=== PATIENT | female | born 1960 | race Caucasian/White ===

== ENCOUNTER 2016-06-20 23:42 | Emergency (ER) | payer MEDICAID ==
--- NOTE | 2016-06-21 01:34 | ER Document Report ---
ED Fever - General Chief Complaint: Fever Stated Complaint: FEVER Time seen by provider: 01:34 Mode of Arrival: Ambulatory Information source: Patient TRAVEL OUTSIDE OF THE [place] IN LAST 30 DAYS: No - HPI Patient complains to provider of: fever Onset: Other - 5 days ago Onset/Duration: Waxing and waning Quality of pain: No pain Associated symptoms: Headache Similar symptoms previously: Yes Recently seen / treated by doctor: Yes Notes: Patient is a 55 year old female with a history of cirrhosis of the liver and liver cancer who presents to the emergency room for complaints of a fever this been going on for the past few days, she reports a headache and symptoms consistent with thrush in her mouth, she states she had a fever on or Sunday of last week, Sunday and Sunday were okay but today she developed one again, she reports a mild headache, no abdominal pain, no nausea, vomiting or diarrhea, no dysuria or hematuria, she has a nonproductive cough as well, no sick contacts - Related Data Allergies/Adverse Reactions: Coconut * [Coconut] Allergy (Mild, Verified 09/06/15 15:47) morphine Allergy (Verified 03/15/16 12:32) Penicillins Allergy (Verified 09/06/15 15:47) enoxaparin [From Lovenox] Adverse Reaction (Verified 03/15/16 23:02) heparin Adverse Reaction (Verified 03/15/16 23:02) Past Medical History - General Information source: Patient - Social History Smoking Status: Unknown if Ever Smoked Family History: DM, Hyperlipidemia, Hypertension Patient has suicidal ideation: No Patient has homicidal ideation: No - Past Medical History Cardiac Medical History: Reports: Hx Congestive Heart Failure, Hx Coronary Artery Disease, Hx DVT - x 3 to RLE in past, Hx Heart Attack, Hx Hypercholesterolemia, Hx Hypertension Pulmonary Medical History: Reports: Hx Asthma, Hx COPD, Hx Pneumonia Denies: Hx Bronchitis, Hx Tuberculosis Neurological Medical History: Reports: Hx Seizures - pseudo. Denies: Hx Cerebrovascular Accident Endocrine Medical History: Reports: Hx Diabetes Mellitus Type 2 Renal/ Medical History: Denies: Hx Peritoneal Dialysis GI Medical History: Reports: Hx Cirrhosis, Hx Hepatitis - HEP C Musculoskeltal Medical History: Reports Hx Arthritis Skin Medical History: Reports Hx Cellulitis Psychiatric Medical History: Reports: Hx Anxiety, Hx Depression Infectious Medical History: Reports: Hx Hepatitis - HEP C. Denies: Hx MRSA Past Surgical History: Reports: Hx Cardiac Catheterization - angioplasty, Hx Coronary Artery Bypass Graft, Hx Orthopedic Surgery - R finger surgery x5, foot surgery, Hx Tonsillectomy, Hx Tubal Ligation. Denies: Hx Pacemaker - Immunizations Immunizations up to date: Yes Hx Diphtheria, Pertussis, Tetanus Vaccination: Yes Hx Pneumococcal Vaccination: 02/11/14 Review of Systems - Review of Systems Constitutional: Fever EENT: No symptoms reported Cardiovascular: No symptoms reported Respiratory: Cough Gastrointestinal: No symptoms reported Genitourinary: No symptoms reported Female Genitourinary: No symptoms reported Musculoskeletal: No symptoms reported Skin: No symptoms reported Hematologic/Lymphatic: No symptoms reported Neurological/Psychological: Headaches -: Yes All other systems reviewed and negative Physical Exam - Vital signs Vitals: Temp Resp BP 101.1 F H 20 134/71 H 06/21/16 00:01 06/21/16 00:01 06/21/16 00:01 Interpretation: Normal - General General appearance: Appears well, Alert - HEENT Head: Normocephalic, Atraumatic Eyes: Normal Conjunctiva: Icteric Extraocular movements intact: Yes Eyelashes: Normal Pupils: PERRL Ears: Normal External canal: Normal Tympanic membrane: Normal Sinus: Normal Nasal: Normal Mouth/Lips: Other - Patient has mild periodontal erythema and irritation with white plaques Mucous membranes: Normal Pharynx: Normal Neck: Normal - Respiratory Respiratory status: No respiratory distress Chest status: Nontender Breath sounds: Normal Chest palpation: Normal - Cardiovascular Rhythm: Regular Heart sounds: Normal auscultation Murmur: No - Abdominal Inspection: Normal Distension: Distended, Fluid wave Bowel sounds: Normal Tenderness: Nontender Organomegaly: No organomegaly - Back Back: Normal, Nontender - Extremities General upper extremity: Normal inspection, Nontender, Normal color, Normal ROM , Normal temperature General lower extremity: Normal inspection, Nontender, Normal color, Normal ROM , Normal temperature, Normal weight bearing. No: Gregory's sign - Neurological Neuro grossly intact: Yes Cognition: Normal Orientation: AAOx4 Anupama Coma Scale Eye Opening: Spontaneous [place] Coma Scale Verbal: Oriented [place] Coma Scale Motor: Obeys Commands [place] Coma Scale Total: 15 Speech: Normal Motor strength normal: LUE, RUE, LLE, RLE Sensory: Normal - Psychological Associated symptoms: Normal affect, Normal mood - Skin Skin Temperature: Warm Skin Moisture: Dry Skin Color: Jaundiced Course - Re-evaluation Re-evalutation: 06/21/16 03:22 Lab results were shared with patient at bedside and she was provided with a copy for follow-up, there is no leukocytosis, vital signs are stable, no signs of any infection on physical exam, abdomen is soft and nontender with ascites, influenza is negative, patient was provided with Magic mouthwash and advised to follow-up with her primary care provider and sign erector and repairer within the next 2-3 days or return if symptoms worsen, patient acknowledges understanding and agreement with this plan 06/21/16 06:39 Patient is noted to have thrombocytopenia consistent with previous white counts , she has no signs of bleeding - Vital Signs Vital signs: Temp Pulse Resp BP Pulse Ox 98.5 F 78 16 119/66 97 06/21/16 03:58 06/21/16 03:58 06/21/16 03:58 06/21/16 03:58 06/21/16 03:58 - Laboratory Result Diagrams: 06/21/16 01:56 06/21/16 01:56 Laboratory results interpreted by me: 06/21/16 06/21/16 06/21/16 01:56 01:56 02:15 RBC 3.58 L Hgb 11.7 L Hct 34.2 L RDW 18.1 H Plt Count 17 L* Sodium 134.7 L Calcium 7.8 L Total Bilirubin 7.1 H AST 49 H Alkaline Phosphatase 213 H Total Protein 6.0 L Albumin 2.6 L Urine Blood LARGE H Discharge - Discharge Clinical Impression: Viral illness, Thrombocytopenia Fever Qualifiers: Fever type: unspecified Qualified Code(s): R50.9 - Fever, unspecified Condition: Stable Disposition: HOME, SELF-CARE Instructions: Acetaminophen, Fever ([facility]), Viral Syndrome ([facility]) Additional Instructions: Follow up with your primary care provider and your sign erector and repairer in one to 2 days. Return to the emergency room immediately if symptoms worsen or any additional concerns. Prescriptions: Nystatin/Dexameth/Diphen [Magic Mouthwash ([facility] Formula) Susp] 5 ml PO QID #120 ml Referrals: BENEDICTO ODELL MD [Primary Care Provider] - Follow up as needed
[2016-06-21 02:30] LABS: ABSOLUTE BASOPHILS # (AUTO) 0.1 10^3/uL (0.0-0.2); ABSOLUTE EOSINOPHILS # (AUTO) 0.1 10^3/uL (0.0-0.6); ABSOLUTE MONOCYTES (AUTO) 0.6 10^3/uL (0.1-1.4); ABSOLUTE NEUT (AUTO) 3.8 10^3/uL (1.7-8.2); EOSINOPHILS % (AUTO) 2.4 % (0-6); HEMATOCRIT 34.2 % (36.0-47.0); HEMOGLOBIN 11.7 g/dL (12.0-15.5); HGB HCT DIFFERENCE 0.9; LYMPHOCYTES % (AUTO) 17.6 % (13-45); MEAN CORPUSCULAR HEMOGLOBIN 32.7 pg (27.0-33.4); MEAN CORPUSCULAR HGB CONC 34.2 g/dL (32.0-36.0); MEAN CORPUSCULAR VOLUME 96 fl (80-97); MONOCYTES % (AUTO) 10.9 % (3-13); RED BLOOD COUNT 3.58 10^6/uL (3.72-5.28); RED CELL DISTRIBUTION WIDTH 18.1 % (11.5-14.0); SEGMENTED NEUTROPHILS % (AUTO) 68.1 % (42-78); WHITE BLOOD COUNT 5.6 10^3/uL (4.0-10.5)
[2016-06-21 02:36] LABS: ALANINE AMINOTRANSFERASE 39 U/L (9-52); ALBUMIN 2.6 g/dL (3.5-5.0); ALKALINE PHOSPHATASE 213 U/L (38-126); ANION GAP 9 (5-19); ASPARTATE AMINO TRANSFERASE 49 U/L (14-36); BILIRUBIN,DIRECT 0.1 mg/dL (0.0-0.3); BILIRUBIN,TOTAL 7.1 mg/dL (0.2-1.3); BLOOD UREA NITROGEN 8 mg/dL (7-20); CALCIUM 7.8 mg/dL (8.4-10.2); CARBON DIOXIDE 22 mmol/L (22-30); CHLORIDE 104 mmol/L (98-107); CREATININE RESULT 0.54 mg/dL (0.52-1.25); GLUCOSE 87 mg/dL (75-110); POTASSIUM 3.8 mmol/L (3.6-5.0); SODIUM 134.7 mmol/L (137-145)
[2016-06-21 02:56] LABS: APPEARANCE,URINE SLIGHTLY-CLOUDY; BILIRUBIN,URINE NEGATIVE (NEGATIVE); GLUCOSE, URINE NEGATIVE (NEGATIVE); KETONES,URINE NEGATIVE (NEGATIVE); LEUKOCYTE ESTERASE,URINE NEGATIVE (NEGATIVE); NITRITE,URINE NEGATIVE (NEGATIVE); PROTEIN,URINE NEGATIVE (NEGATIVE); URINE SPECIFIC GRAVITY 1.009; UROBILINOGEN,URINE NEGATIVE mg/dL (<2.0)
[2016-06-21] MEDS ORDERED: NYSTATIN/DEXAMETH/DIPHEN SUSP 120 ML PO ONE ×2 (03:31→03:43)
[2016-06-21 03:58] VITALS: BP 119/66
== END 2016-06-21 03:58 | disposition home or self-care (01) ==
LOC: ER 23:42
DX: D69.6 Thrombocytopenia, unspecified (principal); R50.9 Fever, unspecified; B34.9 Viral infection, unspecified; I50.9 Heart failure, unspecified; I11.0 Hypertensive heart disease with heart failure; I25.10 Atherosclerotic heart disease of native coronary artery without angina pectoris; E78.00 Pure hypercholesterolemia, unspecified; E11.9 Type 2 diabetes mellitus without complications; Z86.718 Personal history of other venous thrombosis and embolism; Z86.19 Personal history of other infectious and parasitic diseases; Z88.0 Allergy status to penicillin; Z88.6 Allergy status to analgesic agent; I25.2 Old myocardial infarction; Z95.1 Presence of aortocoronary bypass graft; Z98.51 Tubal ligation status
CPT/HCPCS: 99283; 36415; 87040; 87086; 85025; 80053; 81001; 87804; J3490

== ENCOUNTER 2016-08-04 08:50 | Inpatient (IN) | payer MEDICAID ==
[2016-08-04] MEDS ORDERED: ONDANSETRON HCL INJ/PF 4 MG/2 ML SDV IV ONE ×2 (09:44→09:57)
[2016-08-04] MEDS ORDERED: ONDANSETRON HCL INJ/PF 4 MG/2 ML SDV ONE (09:46)
--- NOTE | 2016-08-04 10:14 | ER Document Report ---
ED GI/ - General Chief Complaint: Abdominal Pain Stated Complaint: SHORTESS OF BREATH Notes: The patient is a 55-year-old female, past medical history hepatocellular carcinoma, ascites, presents requesting her albumin infusion. She has been receiving biweekly albumin infusions at [facility] to help decrease her ascites. She did not feel like going up to her appointment 5 days ago and now she is gaining weight. She has a home hospice nurse and the nurse is trying to set her up with Dr. Laboy, the oncologist in [place]. The meeting is today. Patient also has intermittent abdominal pain, nausea or vomiting while in the emergency room. Patient denies current shortness of breath, fevers, cough, confusion, numbness, tingling, blurry vision or back pain. TRAVEL OUTSIDE OF THE [place] IN LAST 30 DAYS: No - Related Data Allergies/Adverse Reactions: Coconut * [Coconut] Allergy (Mild, Verified 08/04/16 09:20) morphine Allergy (Verified 08/04/16 09:20) Penicillins Allergy (Verified 08/04/16 09:20) enoxaparin [From Lovenox] Adverse Reaction (Verified 08/04/16 09:20) heparin Adverse Reaction (Verified 08/04/16 09:20) Past Medical History - General Information source: Patient, Relative - Social History Smoking Status: Current Every Day Smoker Frequency of alcohol use: None Drug Abuse: None Family History: DM, Hyperlipidemia, Hypertension - Past Medical History Cardiac Medical History: Reports: Hx Congestive Heart Failure, Hx Coronary Artery Disease, Hx DVT - x 3 to RLE in past, Hx Heart Attack, Hx Hypercholesterolemia, Hx Hypertension Pulmonary Medical History: Reports: Hx Asthma, Hx COPD, Hx Pneumonia Denies: Hx Bronchitis, Hx Tuberculosis Neurological Medical History: Reports: Hx Seizures - pseudo. Denies: Hx Cerebrovascular Accident Endocrine Medical History: Reports: Hx Diabetes Mellitus Type 2 Renal/ Medical History: Denies: Hx Peritoneal Dialysis GI Medical History: Reports: Hx Cirrhosis, Hx Hepatitis - HEP C Musculoskeltal Medical History: Reports Hx Arthritis Skin Medical History: Reports Hx Cellulitis Psychiatric Medical History: Reports: Hx Anxiety, Hx Depression Infectious Medical History: Reports: Hx Hepatitis - HEP C. Denies: Hx MRSA Past Surgical History: Reports: Hx Cardiac Catheterization - angioplasty, Hx Coronary Artery Bypass Graft, Hx Orthopedic Surgery - R finger surgery x5, foot surgery, Hx Tonsillectomy, Hx Tubal Ligation. Denies: Hx Pacemaker - Immunizations Immunizations up to date: Yes Hx Diphtheria, Pertussis, Tetanus Vaccination: Yes Hx Pneumococcal Vaccination: 02/11/14 Review of Systems - Review of Systems Notes: REVIEW OF SYSTEMS: CONSTITUTIONAL: +weight gain, -fevers, -chills EENT: -eye pain, -difficulty swallowing, -nasal congestion CARDIOVASCULAR:-chest pain, -syncope. RESPIRATORY: -cough, -SOB GASTROINTESTINAL: +abdominal distention, +abdominal pain, +nausea, +vomiting, - diarrhea GENITOURINARY: -dysuria, -hematuria MUSCULOSKELETAL: -back pain, -neck pain SKIN: -rash or skin lesions. HEMATOLOGIC: -easy bruising or bleeding. LYMPHATIC: -swollen, enlarged glands. NEUROLOGICAL: +confusion, -headache PSYCHIATRIC: -anxiety, -depression. ALL OTHER SYSTEMS REVIEWED AND NEGATIVE. Physical Exam - Vital signs Vitals: Temp Pulse Resp BP Pulse Ox 98.3 F 83 20 177/91 H 95 08/04/16 09:13 08/04/16 09:13 08/04/16 09:13 08/04/16 09:13 08/04/16 09:13 - Notes Notes: PHYSICAL EXAMINATION: GENERAL: In no acute distress. HEAD: Atraumatic, normocephalic. EYES: Pupils equal round and reactive to light, extraocular movements intact, sclera icteric, conjunctiva are normal. ENT: nares patent, oropharynx clear without exudates. Moist mucous membranes. NECK: Normal range of motion, supple without lymphadenopathy LUNGS: Breath sounds clear to auscultation bilaterally and equal. No wheezes rales or rhonchi. HEART: Regular rate and rhythm without murmurs ABDOMEN: Ascites, mild diffuse tenderness, decreased bowel sounds. No masses appreciated. EXTREMITIES: Normal range of motion, 2+ are full edema and chronic venous stasis changes. No cyanosis. NEUROLOGICAL: Cranial nerves grossly intact. Normal speech, normal gait. Normal sensory, motor, and reflex exams. PSYCH: Normal mood, normal affect. SKIN: Jaundiced. Course - Re-evaluation Re-evalutation: Patient with nausea, vomiting and increased abdominal swelling. This may be from her increased ascites, but she is very tender. No fevers to suggest SBP. CT abdomen and pelvis shows small bowel obstruction and ascites. Patient also has elevated ammonia and hyperkalemia. Provided her with IV potassium. Patient has evidence of SBO on CT scan. With her obstruction, unable to provide lactulose at this time. Spoke to Dr. White (Surgicalist) about SBO and he will be down to see patient. - Vital Signs Vital signs: Temp Pulse Resp BP Pulse Ox 98.3 F 92 20 149/78 H 96 08/04/16 09:13 08/04/16 12:33 08/04/16 09:13 08/04/16 12:33 08/04/16 12:33 - Laboratory Result Diagrams: 08/04/16 11:17 08/04/16 09:55 Laboratory results interpreted by me: 08/04/16 08/04/16 08/04/16 09:55 09:55 09:55 RBC Hgb Hct MCH RDW Seg Neuts % (Manual) Band Neutrophils % Lymphocytes % (Manual) Abs Neuts (Manual) Sodium 135.1 L Potassium 2.9 L* Chloride 95 L Creatinine 0.38 L Glucose 115 H Lactic Acid 2.5 H Calcium 7.8 L Total Bilirubin 17.9 H Direct Bilirubin 6.3 H AST 133 H ALT 76 H Alkaline Phosphatase 276 H Ammonia 143.2 H Albumin 3.0 L 08/04/16 11:17 RBC 2.74 L Hgb 9.2 L Hct 26.4 L MCH 33.5 H RDW 20.0 H Seg Neuts % (Manual) 86 H Band Neutrophils % 2 L Lymphocytes % (Manual) 6 L Abs Neuts (Manual) 9.0 H Sodium Potassium Chloride Creatinine Glucose Lactic Acid Calcium Total Bilirubin Direct Bilirubin AST ALT Alkaline Phosphatase Ammonia Albumin - Diagnostic Test Radiology reviewed: Image reviewed, Reports reviewed Radiology results interpreted by me: CT A/P: Small bowel obstruction Critical Care Note - Critical Care Note Total time excluding time spent on procedures (mins): 35 Discharge - Discharge Clinical Impression: Small bowel obstruction, Hypokalemia, Hepatic encephalopathy Condition: Stable Disposition: ADMITTED INPATIENT Admitting Provider: Surgicalist Eva White
[2016-08-04] MEDS: ALBUMIN HUMAN 50 ML IV SCH ×2 (10:46→11:32)
[2016-08-04 10:51] LABS: ALANINE AMINOTRANSFERASE 76 U/L (9-52); ALKALINE PHOSPHATASE 276 U/L (38-126); ANION GAP 11 (5-19); ASPARTATE AMINO TRANSFERASE 133 U/L (14-36); BILIRUBIN,DIRECT 6.3 mg/dL (0.0-0.4); BILIRUBIN,TOTAL 17.9 mg/dL (0.2-1.3); BLOOD UREA NITROGEN 10 mg/dL (7-20); CALCIUM 7.8 mg/dL (8.4-10.2); CARBON DIOXIDE 29 mmol/L (22-30); CHLORIDE 95 mmol/L (98-107); CREATININE RESULT 0.38 mg/dL (0.52-1.25); GLUCOSE 115 mg/dL (75-110); LIPASE 46.1 U/L (23-300); SODIUM 135.1 mmol/L (137-145); TOTAL PROTEIN 6.7 g/dL (6.3-8.2)
[2016-08-04 10:57] LABS: POTASSIUM 2.9 mmol/L (3.6-5.0)
[2016-08-04 11:34] LABS: HEMATOCRIT 26.4 % (36.0-47.0); HEMOGLOBIN 9.2 g/dL (12.0-15.5); HGB HCT DIFFERENCE 1.2; MEAN CORPUSCULAR HEMOGLOBIN 33.5 pg (27.0-33.4); MEAN CORPUSCULAR HGB CONC 34.8 g/dL (32.0-36.0); MEAN CORPUSCULAR VOLUME 96 fl (80-97); RED BLOOD COUNT 2.74 10^6/uL (3.72-5.28); WHITE BLOOD COUNT 10.2 10^3/uL (4.0-10.5)
[2016-08-04] MEDS ORDERED: LACTULOSE SYRUP 20 GM/30 ML UDCUP PO ONE (11:43)
[2016-08-04] MEDS ORDERED: POTASSIUM CHLORIDE 10 MEQ TABLET.SA PO ONE (11:44)
[2016-08-04] MEDS ORDERED: POTASSI CL 20 MEQ/50 ML RIDER 50 ML IV SCH (11:45)
[2016-08-04 12:06] LABS: BAND NEUTROPHILS % (MANUAL) 2 % (3-5); BASOPHILS % (MANUAL) 0 % (0-2); EOSINOPHILS % (MANUAL) 0 % (0-6); LYMPHOCYTES % (MANUAL) 6 % (13-45); TOTAL CELLS COUNTED 100
[2016-08-04 12:07] LABS: ANISOCYTOSIS 2+; OVALOCYTES SLIGHT; POIKILOCYTOSIS SLIGHT; POLYCHROMASIA 1+; TARGET CELLS 1+; TEAR DROP CELLS SLIGHT
[2016-08-04] MEDS ORDERED: METOCLOPRAMIDE HCL INJ/PF 10 MG/2 ML SDV IV ONE (12:15)
[2016-08-04] MEDS ORDERED: ONDANSETRON HCL INJ/PF 4 MG/2 ML SDV IV PRN (16:26)
[2016-08-04] MEDS ORDERED: PHARMACY COMMUNICATION ORDER MC NR (16:30)
--- NOTE | 2016-08-04 17:28 | HISTORY AND PHYSICAL E ---
History and Physical NAME: RIC LONDON : 1960 AGE: 55Y ADMITTED: 08/04/2016 ROOM: REASON FOR ADMISSION: Suspected small bowel obstruction. HISTORY OF PRESENT ILLNESS: This 55-year-old female with history of hepatocellular carcinoma and ascites presented to the hospital requesting her albumin infusion. The patient receives biweekly albumin infusions at [facility] to help decrease her ascites. The patient did not feel like going to her [facility] appointment 5 days ago and now she is gaining weight. The patient has a home hospice nurse and the nurse is trying to set her up with Dr. Laboy, the oncologist in [place]. However, today the patient developed left sided and mid lower abdominal pain with vomiting 8-10 times and pain 8/10 in her abdomen. The patient also had diarrhea several times since yesterday. The patient denies any shortness of breath, fever, chills or cough. Because of the continued abdominal pain, the patient presented to the emergency room, and on evaluation in the ER she was found to have [id number] lower abdominal tenderness with guarding but no rebound. No peritoneal signs noted. The patient's bowel sounds were hypoactive. The patient underwent a CT of her abdomen. The patient was found to have a dilated proximal small bowel thought to be resulting from small bowel obstruction. There was generalized bowel wall thickening throughout the colon which may be due to general edema versus colitis. The patient was also noted to have a biliary stent, cirrhosis of the liver, findings of portal hypertension with recanalization of the umbilical vein and an ill-defined, low-attenuated mass adjacent to the falciform ligament. Because of the question of small bowel obstruction, surgical referral has been made. PAST MEDICAL HISTORY: As in history of present illness. The patient has hepatocellular carcinoma of her liver. The patient also has a history of congestive heart failure, history of coronary artery disease, history of DVT x3 to the right lower extremity in the past, history of heart attack. The patient also has a history of hypertension and hypercholesterolemia. The patient has a history of asthma and COPD. Neurologic medical history: The patient has a history of seizures/pseudoseizures. The patient has diabetes mellitus type 2. The patient has a history of cirrhosis, hepatitis and hep C. The patient has a history of arthritis. The patient has a history of cellulitis as well. Psychiatric medical history: The patient has a history of anxiety and depression. PAST SURGICAL HISTORY: Also includes cardiac catheterization with angioplasty and history of coronary artery bypass grafting. The patient has had right finger surgery x5 and right ankle surgery. The patient has a history of tonsillectomy and history of tubal ligation. ALLERGIES: 1. COCONUT. 2. MORPHINE. 3. PENICILLIN. 4. LOVENOX. PHYSICAL EXAMINATION: GENERAL: Reveals a 55-year-old female who is obese, normally developed and normally nourished, who appears in mild distress. VITAL SIGNS: Temperature 98.3, pulse 92, respirations 20, blood pressure 129/78, pulse ox 96%. HEENT: The patient has mild conjunctival pallor and scleral icterus. Mucous membranes are dry. NECK: Supple without nodes or masses of thyroid, JVD or bruit. Trachea is midline. CHEST: Chest wall shows good air excursions. Lungs are clear anteriorly with good entry bilaterally. CARDIOVASCULAR: Pulses are regular without murmurs or gallops. ABDOMEN: Obese, distended, tense with hypoactive bowel sounds. The patient has generalized left-sided and right-sided mid abdominal tenderness without guarding or rebound. Bowel sounds are hypoactive. EXTREMITIES: Show full range of motion. IMPRESSION: Partial small bowel obstruction. ADDITIONAL DIAGNOSES: 1. Hepatocellular carcinoma. 2. Ascites. 3. Coronary artery disease. 4. History of congestive heart failure. 5. Asthma. 6. COPD. 7. Diabetes mellitus. 8. The patient also has a history of cirrhosis and hepatitis. PLAN: We will place an NG tube in this patient and feed her conservatively as she is at significant risk from a surgical perspective. We will keep the patient n.p.o. We will give her IV fluids and anticipate that her small bowel obstruction will resolve with conservative measures. DICTATING PHYSICIAN: BARRINGTON GALEAS M.D. [id number] PHY#: [id number] ID: [id number] JOB#: [id number] ACCT: [id number] cc: >
--- NOTE | 2016-08-04 18:29 | PDOC CONSULTATION ---
Consultation Consult Date: 08/04/16 Attending physician:: BARRINGTON GALEAS Consult reason:: Medical management History of Present Illness Admission Date/PCP: 08/04/16 16:26 Patient complains of: Abdominal pain nausea and vomiting History of Present Illness: RIC LONDON is a 55 year old female, with underlying history of hepatocellular carcinoma, liver cirrhosis, hepatitis C, being followed in [facility] for albumin infusion for her chronic ascites and third space loss, presented to the emergency room because of abdominal pain mainly on the lower quadrants with associated nausea and vomiting. The patient is under the care of hospice and she went here to the hospital on her own as reported by the hospice staff. In the emergency room she was found to have findings suggestive of small bowel obstruction therefore she was admitted under the surgical service. Consultation was made for medical management for her chronic medical problems including hypertension and congestive heart failure, COPD, coronary artery disease, hyperlipidemia, cirrhosis of the liver, anxiety and depression. Patient is a DO NOT RESUSCITATE. 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 Endocrine Medical History: Reports: Diabetes Mellitus Type 2 GI Medical History: Reports: Cirrhosis, Hepatitis - HEP C, Other - Liver cancer , hepatic encephalopathy, Musculoskeltal Medical History: Reports: Arthritis Psychiatric Medical History: Reports: Depression Hematology: Denies: Anemia Infectious Medical History: Denies: Methicillin-Resistant Staph Aureus Past Surgical History Past Surgical History: Reports: Cardiac Catheterization - angioplasty, Coronary Artery Bypass Graft, Orthopedic Surgery - R finger surgery x5, foot surgery, Tonsillectomy, Tubal Ligation Denies: Pacemaker Social History Information Source: [facility] Records Smoking Status: Current Every Day Smoker Frequency of Alcohol Use: None Hx Recreational Drug Use: Yes Drugs: None Hx Prescription Drug Abuse: No Family History Family History: DM, Hyperlipidemia, Hypertension Parental Family History Reviewed: Yes Children Family History Reviewed: Yes Sibling(s) Family History Reviewed.: Yes Medication/Allergy Home Medications: Abhr Supp 1 supp AL Q4HP PRN 08/04/16 Acetaminophen [Tylenol 650 mg Supp] 1 supp AL Q4HP PRN 08/04/16 Alprazolam [Xanax 0.25 mg Tablet] 0.25 mg PO HSP PRN 08/04/16 Fentanyl [Duragesic 25 mcg/hr Transdermal Patch] 1 patch TD Q3D 08/04/16 Furosemide [Lasix] 40 mg PO Q12HP PRN 08/04/16 Furosemide [Lasix] 100 mg PO BID 08/04/16 Haloperidol [Haldol 1 mg Tablet] 1 mg AL ASDIR PRN 08/04/16 Haloperidol [Haldol 1 mg Tablet] 1 mg SL ASDIR PRN 08/04/16 Hyoscyamine Sulfate [Levsin-Sl] 0.125 mg SL Q4HP PRN 08/04/16 Lorazepam [Ativan 0.5 mg Tablet] 0.5 mg AL Q4HP PRN 08/04/16 Lorazepam [Ativan 0.5 mg Tablet] 0.5 mg SL Q4HP PRN 08/04/16 Prochlorperazine Maleate [Compazine 25 mg Supp.rect] 1 supp AL Q12HP PRN Promethazine HCl [Phenergan 25 mg Tablet] 25 mg PO Q8HP PRN 08/04/16 Allergies/Adverse Reactions: Coconut * [Coconut] Allergy (Mild, Verified 08/04/16 09:20) morphine Allergy (Verified 08/04/16 09:20) Penicillins Allergy (Verified 08/04/16 09:20) enoxaparin [From Lovenox] Adverse Reaction (Verified 08/04/16 09:20) heparin Adverse Reaction (Verified 08/04/16 09:20) Review of Systems Constitutional: PRESENT: headache(s), weight loss - Unquantified. ABSENT: chills, fever(s) Eyes: ABSENT: visual disturbances Ears: ABSENT: hearing changes Nose, Mouth, and Throat: PRESENT: mouth pain Cardiovascular: PRESENT: edema, orthropnea. ABSENT: chest pain, palpitations Respiratory: PRESENT: cough - Occasional, dyspnea. ABSENT: hemoptysis, sputum Gastrointestinal: PRESENT: abdominal pain, coffee ground emesis, nausea, vomiting. ABSENT: hematochezia, melena Genitourinary: ABSENT: dysuria, hematuria Musculoskeletal: PRESENT: back pain, muscle weakness - Generalized Integumentary: PRESENT: pruritus Neurological: ABSENT: convulsions, dizziness, syncope, vertigo Hematologic/Lymphatic: PRESENT: easy bruising Physical Exam Vital Signs: Temp Pulse Resp BP Pulse Ox 98.3 F 105 H 18 139/77 H 95 08/04/16 09:13 08/04/16 16:37 08/04/16 16:37 08/04/16 16:37 08/04/16 16:37 General appearance: PRESENT: mild distress, morbidly obese Head exam: PRESENT: normocephalic Eye exam: PRESENT: conjunctiva pale, EOMI, PERRLA, scleral icterus Mouth exam: PRESENT: dry mucosa, neck supple Teeth exam: PRESENT: poor dentation Neck exam: ABSENT: carotid bruit, JVD, thyromegaly Respiratory exam: PRESENT: chest wall tenderness, decreased breath sounds, unlabored. ABSENT: rhonchi, wheezes Cardiovascular exam: PRESENT: RRR. ABSENT: gallop GI/Abdominal exam: PRESENT: distended, hypoactive bowel sounds, soft Extremities exam: PRESENT: +1 edema Neurological exam: PRESENT: alert, awake, oriented to person, oriented to place , oriented to situation Focused psych exam: PRESENT: restlessness Skin exam: PRESENT: dry, warm. ABSENT: cyanosis Results Impressions: Abdomen/Pelvis CT 08/04/16 12:50 IMPRESSION: 1. FINDINGS CONSISTENT WITH CIRRHOSIS OF THE LIVER. FINDINGS OF PORTAL HYPERTENSION WITH RECANNULIZATION OF THE UMBILICAL VEIN. ILL-DEFINED LOW- ATTENUATION MASS ADJACENT TO THE FALCIFORM LIGAMENT. FURTHER EVALUATION WITH MRI OF THE LIVER MAY BE INDICATED. 2. INTERVAL DEVELOPMENT OF MODERATE ASCITES. THERE IS ALSO DIFFUSE EDEMA IN THE SUBCUTANEOUS SOFT TISSUES WELL A SMALL RIGHT PLEURAL EFFUSION. 3. BILIARY STENT PRESENT. 4. DILATED PROXIMAL SMALL BOWEL CONCERNING FOR BOWEL OBSTRUCTION. THERE IS ALSO GENERALIZED BOWEL WALL THICKENING THROUGHOUT THE COLON WHICH MAY BE DUE TO GENERAL EDEMA VERSUS COLITIS. EVALUATION LIMITED WITHOUT ORAL CONTRAST. Assessment & Plan - Diagnosis (1) Small bowel obstruction Is this a current diagnosis for this admission?: Yes (2) Hepatic encephalopathy Is this a current diagnosis for this admission?: Yes (3) Anasarca Is this a current diagnosis for this admission?: Yes (4) Hypokalemia Is this a current diagnosis for this admission?: Yes (5) COPD (chronic obstructive pulmonary disease) Qualifiers: Emphysema type: unspecified Is this a current diagnosis for this admission?: Yes (6) Coronary artery disease Qualifiers: Coronary Disease-Associated Artery/Lesion type: [place] artery [place] vs. transplanted heart: [place] heart Associated angina: angina presence unspecified Qualified Code(s): I25.10 - Atherosclerotic heart disease of [place] coronary artery without angina pectoris Is this a current diagnosis for this admission?: Yes (7) Hepatitis C Qualifiers: Viral hepatitis chronicity: unspecified Hepatic coma status: without hepatic coma Qualified Code(s): B19.20 - Unspecified viral hepatitis C without hepatic coma Is this a current diagnosis for this admission?: Yes (8) Hyperlipidemia Qualifiers: Hyperlipidemia type: unspecified Qualified Code(s): E78.5 - Hyperlipidemia, unspecified Is this a current diagnosis for this admission?: Yes (9) Hypertension Qualifiers: Hypertension type: essential hypertension Qualified Code(s): I10 - Essential (primary) hypertension Is this a current diagnosis for this admission?: Yes (10) Chronic CHF Qualifiers: Congestive heart failure type: unspecified congestive heart failure type Qualified Code(s): I50.9 - Heart failure, unspecified Is this a current diagnosis for this admission?: Yes (11) Liver cirrhosis Qualifiers: Hepatic cirrhosis type: unspecified hepatic cirrhosis Ascites presence : with ascites Qualified Code(s): K74.60 - Unspecified cirrhosis of liver Is this a current diagnosis for this admission?: Yes (12) Portal hypertension Is this a current diagnosis for this admission?: Yes (13) Hepatocellular carcinoma Is this a current diagnosis for this admission?: Yes - Time Time Spent: 30 to 50 Minutes - Plan Summary Plan Summary: Patient has a grave prognosis. Recommended continued hospice, and comfort measures. We may have to discuss it with the rest of the family when available. In the meantime I will check electrolytes and replace accordingly. Gave as needed Ativan for anxiety and Dilaudid for pain. Nasogastric tube can be tried to be inserted, if successful we can give some lactulose and neomycin if agreeable and obstruction is better. Otherwise agree with supportive measures and IV fluids. Thank you so much for this consultation. We will follow-up the patient with you.
[2016-08-04] MEDS: HYDROMORPHONE HCL INJ/PF 2 MG/ML AMPULE IV PRN (20:48)
[2016-08-04] MEDS: LORAZEPAM INJ 2 MG/1 ML VIAL IV PRN (20:48)
[2016-08-04] MEDS: DEXTROSE 5%-LACTATED RINGERS 1,000 ML IV PRN (21:27)
[2016-08-04] MEDS: FAMOTIDINE INJ/PF 20 MG/2 ML SDV IV SCH (21:27)
[2016-08-05] MEDS ORDERED: LACTULOSE SYRUP 20 GM/30 ML UDCUP PO ONE (02:00)
[2016-08-05] MEDS: HYDROMORPHONE HCL INJ/PF 2 MG/ML AMPULE IV PRN ×4 (06:46→22:39)
[2016-08-05] MEDS: LACTULOSE SYRUP 20 GM/30 ML UDCUP NG SCH ×4 (06:46→23:50)
[2016-08-05 06:48] LABS: PROTHROMBIN TIME 34.5 SEC (11.4-15.4)
[2016-08-05 07:02] LABS: ANION GAP 10 (5-19); BLOOD UREA NITROGEN 11 mg/dL (7-20); CARBON DIOXIDE 31 mmol/L (22-30); CHLORIDE 97 mmol/L (98-107); CREATININE RESULT 0.44 mg/dL (0.52-1.25); GLUCOSE 127 mg/dL (75-110); MAGNESIUM 1.9 mg/dL (1.6-2.3); SODIUM 137.7 mmol/L (137-145)
[2016-08-05 07:06] LABS: POTASSIUM 2.9 mmol/L (3.6-5.0)
[2016-08-05] MEDS ORDERED: POTASSI CL 20 MEQ/50 ML RIDER 20 MEQ/50 ML RTUPB IV ONE (07:42)
[2016-08-05] MEDS: LORAZEPAM INJ 2 MG/1 ML VIAL IV PRN ×3 (07:47→22:39)
[2016-08-05] MEDS ORDERED: NORMAL SALINE 1000 ML 1,000 ML IV ONE (08:00)
[2016-08-05] MEDS ORDERED: INSULIN REG, HUMAN 100 UNIT/ML 3 ML VIAL (PYX) SUBCUT PRN (08:19)
[2016-08-05] MEDS ORDERED: DEXTROSE 50%-WATER 25 GM/50 ML DISP.SYRIN IV PRN ×2 (08:19)
[2016-08-05] MEDS ORDERED: GLUCAGON,HUMAN RECOMB 1 MG INJ IM PRN (08:19)
[2016-08-05] MEDS ORDERED: DEXTROSE 40% GEL 15 GM TUBE PO PRN ×2 (08:19)
[2016-08-05] MEDS: POTASSI CL 20 MEQ/50 ML RIDER 50 ML IV SCH ×2 (09:33→13:10)
[2016-08-05] MEDS: FAMOTIDINE INJ/PF 20 MG/2 ML SDV IV SCH ×2 (09:35→22:01)
--- NOTE | 2016-08-05 11:47 | PDOC PROGRESS REPORT ---
Subjective Progress Note for:: 08/05/16 Subjective:: Patient is stuporous Physical Exam Vital Signs: Temp Pulse Resp BP Pulse Ox 98.3 F 90 18 136/69 H 97 08/05/16 07:41 08/05/16 07:41 08/05/16 07:41 08/05/16 07:41 08/05/16 07:41 Intake & Output 08/04/16 08/05/16 08/06/16 06:59 06:59 06:59 Intake Total 0 Output Total 0 Balance 0 Weight 133.6 kg GI/Abdominal exam: PRESENT: other - soft abdomen Results Laboratory Results: 08/05/16 06:00 08/05/16 06:00 Sodium 137.7 Potassium 2.9 L* Chloride 97 L Carbon Dioxide 31 H Anion Gap 10 BUN 11 Creatinine 0.44 L Est GFR ( Amer) > 60 Est GFR (Non-Af Amer) > 60 Glucose 127 H Calcium 8.0 L Magnesium 1.9 Impressions: Abdomen/Pelvis CT 08/04/16 12:50 IMPRESSION: 1. FINDINGS CONSISTENT WITH CIRRHOSIS OF THE LIVER. FINDINGS OF PORTAL HYPERTENSION WITH RECANNULIZATION OF THE UMBILICAL VEIN. ILL-DEFINED LOW- ATTENUATION MASS ADJACENT TO THE FALCIFORM LIGAMENT. FURTHER EVALUATION WITH MRI OF THE LIVER MAY BE INDICATED. 2. INTERVAL DEVELOPMENT OF MODERATE ASCITES. THERE IS ALSO DIFFUSE EDEMA IN THE SUBCUTANEOUS SOFT TISSUES WELL A SMALL RIGHT PLEURAL EFFUSION. 3. BILIARY STENT PRESENT. 4. DILATED PROXIMAL SMALL BOWEL CONCERNING FOR BOWEL OBSTRUCTION. THERE IS ALSO GENERALIZED BOWEL WALL THICKENING THROUGHOUT THE COLON WHICH MAY BE DUE TO GENERAL EDEMA VERSUS COLITIS. EVALUATION LIMITED WITHOUT ORAL CONTRAST. Assessment & Plan - Plan Summary Plan Summary: Hepatoma, cirrhosis Ascitis Under hospice care comfort care DC back to Hospice by Sunday
--- NOTE | 2016-08-05 12:08 | PDOC PROGRESS REPORT ---
Subjective Progress Note for:: 08/05/16 Subjective:: Patient is comfortable in bed. Opens eyes when called. A nasogastric tube. No reported respiratory distress or temperature spikes. No urine output however. No bowel movement. Patient now on restraints reportedly she was pulling lines and nasogastric tube. Physical Exam Vital Signs: Temp Pulse Resp BP Pulse Ox 98.3 F 90 18 136/69 H 97 08/05/16 07:41 08/05/16 07:41 08/05/16 07:41 08/05/16 07:41 08/05/16 07:41 Intake & Output 08/04/16 08/05/16 08/06/16 06:59 06:59 06:59 Intake Total 0 Output Total 0 Balance 0 Weight 133.6 kg General appearance: PRESENT: morbidly obese Head exam: PRESENT: normocephalic Eye exam: PRESENT: conjunctiva pale, scleral icterus Mouth exam: PRESENT: neck supple Neck exam: ABSENT: JVD Respiratory exam: PRESENT: rhonchi - few. ABSENT: wheezes Cardiovascular exam: PRESENT: RRR. ABSENT: gallop GI/Abdominal exam: PRESENT: distended, hypoactive bowel sounds Extremities exam: PRESENT: +2 edema Neurological exam: PRESENT: altered Skin exam: PRESENT: dry, warm. ABSENT: cyanosis Results Laboratory Results: 08/05/16 06:00 08/05/16 06:00 Sodium 137.7 Potassium 2.9 L* Chloride 97 L Carbon Dioxide 31 H Anion Gap 10 BUN 11 Creatinine 0.44 L Est GFR ( Amer) > 60 Est GFR (Non-Af Amer) > 60 Glucose 127 H Calcium 8.0 L Magnesium 1.9 Impressions: Abdomen/Pelvis CT 08/04/16 12:50 IMPRESSION: 1. FINDINGS CONSISTENT WITH CIRRHOSIS OF THE LIVER. FINDINGS OF PORTAL HYPERTENSION WITH RECANNULIZATION OF THE UMBILICAL VEIN. ILL-DEFINED LOW- ATTENUATION MASS ADJACENT TO THE FALCIFORM LIGAMENT. FURTHER EVALUATION WITH MRI OF THE LIVER MAY BE INDICATED. 2. INTERVAL DEVELOPMENT OF MODERATE ASCITES. THERE IS ALSO DIFFUSE EDEMA IN THE SUBCUTANEOUS SOFT TISSUES WELL A SMALL RIGHT PLEURAL EFFUSION. 3. BILIARY STENT PRESENT. 4. DILATED PROXIMAL SMALL BOWEL CONCERNING FOR BOWEL OBSTRUCTION. THERE IS ALSO GENERALIZED BOWEL WALL THICKENING THROUGHOUT THE COLON WHICH MAY BE DUE TO GENERAL EDEMA VERSUS COLITIS. EVALUATION LIMITED WITHOUT ORAL CONTRAST. Assessment & Plan - Diagnosis (1) Small bowel obstruction Is this a current diagnosis for this admission?: Yes (2) Hepatic encephalopathy Is this a current diagnosis for this admission?: Yes (3) Anasarca Is this a current diagnosis for this admission?: Yes (4) Hypokalemia Is this a current diagnosis for this admission?: Yes (5) COPD (chronic obstructive pulmonary disease) Qualifiers: Emphysema type: unspecified Is this a current diagnosis for this admission?: Yes (6) Coronary artery disease Qualifiers: Coronary Disease-Associated Artery/Lesion type: [place] artery [place] vs. transplanted heart: [place] heart Associated angina: angina presence unspecified Qualified Code(s): I25.10 - Atherosclerotic heart disease of [place] coronary artery without angina pectoris Is this a current diagnosis for this admission?: Yes (7) Hepatitis C Qualifiers: Viral hepatitis chronicity: unspecified Hepatic coma status: without hepatic coma Qualified Code(s): B19.20 - Unspecified viral hepatitis C without hepatic coma Is this a current diagnosis for this admission?: Yes (8) Hyperlipidemia Qualifiers: Hyperlipidemia type: unspecified Qualified Code(s): E78.5 - Hyperlipidemia, unspecified Is this a current diagnosis for this admission?: Yes (9) Hypertension Qualifiers: Hypertension type: essential hypertension Qualified Code(s): I10 - Essential (primary) hypertension Is this a current diagnosis for this admission?: Yes (10) Chronic CHF Qualifiers: Congestive heart failure type: unspecified congestive heart failure type Qualified Code(s): I50.9 - Heart failure, unspecified Is this a current diagnosis for this admission?: Yes (11) Liver cirrhosis Qualifiers: Hepatic cirrhosis type: unspecified hepatic cirrhosis Ascites presence : with ascites Qualified Code(s): K74.60 - Unspecified cirrhosis of liver Is this a current diagnosis for this admission?: Yes (12) Portal hypertension Is this a current diagnosis for this admission?: Yes (13) Hepatocellular carcinoma Is this a current diagnosis for this admission?: Yes - Time Time Spent with patient: 25-34 minutes - Plan Summary Plan Summary: Replace potassium, recheck electrolytes in the morning. We will put a Ruiz catheter in and monitor input and output. After long discussion with power of stage electrician, regarding comfort measures, they are considering but would like to speak to inpatient hospice staff first. We will consult social service for inpatient hospice.
[2016-08-05] MEDS: DEXTROSE 5%-LACTATED RINGERS 1,000 ML IV PRN ×2 (13:28→22:01)
[2016-08-06 00:42] VITALS: BP 139/61
[2016-08-06] MEDS: HYDROMORPHONE HCL INJ/PF 2 MG/ML AMPULE IV PRN (05:34)
[2016-08-06] MEDS: LORAZEPAM INJ 2 MG/1 ML VIAL IV PRN (05:34)
[2016-08-06] MEDS: LACTULOSE SYRUP 20 GM/30 ML UDCUP NG SCH (05:35)
--- NOTE | 2016-09-24 17:19 | Death Summary ---
Summary Date : 08/06/16 Time of :: 08:05 Autopsy: No Resuscitation Status: Comfort Measures Only - Final Diagnosis (1) Small bowel obstruction Is this a current diagnosis for this admission?: Yes (2) Hepatic encephalopathy Is this a current diagnosis for this admission?: Yes (3) Anasarca Is this a current diagnosis for this admission?: Yes (4) Hypokalemia Is this a current diagnosis for this admission?: Yes (5) COPD (chronic obstructive pulmonary disease) Is this a current diagnosis for this admission?: Yes (6) Coronary artery disease Is this a current diagnosis for this admission?: Yes (7) Hepatitis C Is this a current diagnosis for this admission?: Yes (8) Hyperlipidemia Is this a current diagnosis for this admission?: Yes (9) Hypertension Is this a current diagnosis for this admission?: Yes (10) Chronic CHF Is this a current diagnosis for this admission?: Yes (11) Liver cirrhosis Is this a current diagnosis for this admission?: Yes (12) Portal hypertension Is this a current diagnosis for this admission?: Yes (13) Hepatocellular carcinoma Is this a current diagnosis for this admission?: Yes Hospital Course:: The patient was admitted to the medical floor. Intravenous fluid was instituted. Patient was given Ativan as needed for anxiety, as well as Dilaudid as needed for pain. Nasogastric tube was placed. Patient was treated conservatively for bowel obstruction. Patient's overall prognosis is grave, discussed with next of kin in length, patient has advanced hepatocellular carcinoma and has been on hospice. She was made DO NOT RESUSCITATE . Comfort measures discussed and eventually next of kin agreed for comfort measures as well which was instituted. Patient eventually after 3 days of hospitalization.
== END 2016-08-06 08:05 | disposition expired | DRG 389 ==
LOC: ER 08:50 → EH 16:26 → UNDOADMIN 17:18 → EH 17:18 → 4S 18:52
PROVIDERS: ADMIT Surgery; ATTEND Surgery
PROC: 0DH67UZ Insertion of Feeding Device into Stomach, Via Natural or Artificial Opening (ICD-10-PCS; principal; 2016-08-04)
DX: K56.60 Unspecified intestinal obstruction (principal); C22.0 Liver cell carcinoma; R18.0 Malignant ascites; K76.6 Portal hypertension; Z68.43 Body mass index [BMI] 50.0-59.9, adult; Z66 Do not resuscitate; Z51.5 Encounter for palliative care; K74.60 Unspecified cirrhosis of liver; K72.90 Hepatic failure, unspecified without coma; B19.20 Unspecified viral hepatitis C without hepatic coma; E87.5 Hyperkalemia; I50.9 Heart failure, unspecified; I11.0 Hypertensive heart disease with heart failure; I25.10 Atherosclerotic heart disease of native coronary artery without angina pectoris; E78.5 Hyperlipidemia, unspecified; E11.9 Type 2 diabetes mellitus without complications; F41.8 Other specified anxiety disorders; E66.01 Morbid (severe) obesity due to excess calories; Z86.73 Personal history of transient ischemic attack (TIA), and cerebral infarction without residual deficits; Z95.1 Presence of aortocoronary bypass graft; Z88.5 Allergy status to narcotic agent; Z88.0 Allergy status to penicillin; Z88.8 Allergy status to other drugs, medicaments and biological substances; Z86.718 Personal history of other venous thrombosis and embolism
CPT/HCPCS: 36415; 36591; 43752; 74000; 74177; 80048; 80053; 82140; 82962; 83605; 83690; 83735; 85025; 85610; 96365; 96366; 96367; 96375; 99285; J1170; J2060; J2405; J2765; J3480; J7030; P9047; S0028